=== PATIENT | male | born 2005 | race Two or more races ===

== ENCOUNTER → 2024-09-05 | Emergency (ER) | payer MEDICAID ==
[~2024-09-05] VITALS: Ht 170.2 cm; Wt 113.4 kg
[~2024-09-05] MED LIST: ALBU8.5H8 INH; AMOX125S11 PO; LORA-815 PO
[2024-09-05 12:09] VITALS: BP 129/79; TEMP 98.4; O2SAT 99
== END | disposition home or self-care (01) ==
LOC: ER 11:56
DX: J06.9 Acute upper respiratory infection, unspecified (principal); R05.9 Cough, unspecified